=== PATIENT | female | born 1940 | race Caucasian/White ===

== ENCOUNTER → 2016-11-18 | Outpatient (CLI) | payer MEDICARE ==
[~2016-11-18] MED LIST: COUMADIN2.5 MG PO; DIABETA5 M1 PO; GLUCOPHAGE500 MG PO; GLUCOTROL PO; LOSARTAN-HCTZ1 EACH PO; NASONEX17 GM; OXYCODONE15 M1 PO; PROTONIX PO; SERTRALINE HCL100 M1 PO; VITAMIN D-32000 UNI1 PO; XARELTO10 MG PO; ZOCOR20 MG PO; ZYRTEC10 M2 PO
[2016-11-18 14:23] LABS: BUN/CREATININE RATIO 14.54; CALCIUM SERUM 9.3 mg/dL (8.4-10.2); CREATININE SERUM 1.1 mg/dL (0.6-1.4); GLOM FILT RATE Estimated 48.7 mL/min (>60); POTASSIUM 4.4 mmol/L (3.5-5.1)
== END | disposition home or self-care (01) ==
LOC: CAMB 12:00
PROVIDERS: Surgery
DX: Z01.818 Encounter for other preprocedural examination (principal)
CPT/HCPCS: 36415; 80048

== ENCOUNTER 2016-11-25 07:00 | Inpatient (IN) | payer OTHER ==
[~2016-11-25] VITALS: Ht 172.7 cm; Wt 116.0 kg
--- NOTE | ~2016-11-25 | OR ---
Unit #: [id number] #: [id number] Patient: RAMESH BOUDREAUX [id number] [address] [place], [place] [address] [id number] Christ[place] MR#: [id number] NAME: RAMESH BOUDREAUX. ROOM: 468 Date of Procedure: 11/25/2016 Admission Date: 11/25/2016 Surgeon: Anderson Beckham III, M.D. : 1940 Attending Physician: Anderson Beckham III, M.D. Referring Physician: Anderson Beckham III, M.D. Primary Care Physician: Ofelia Blake M.D. OPERATIVE REPORT PREOPERATIVE DIAGNOSIS Lap band intolerance. POSTOPERATIVE DIAGNOSIS Lap band intolerance. PROCEDURE PERFORMED Laparoscopic removal of adjustable gastric band and port. INTEGRATION ENGINEER Dr. Hunter Cornejo. SPECIMENS None. COMPLICATIONS None apparent. INDICATIONS FOR PROCEDURE This is a 76-year-old lady, who had her Lap-Band placed by Dr. Rodgers. She has not followed up since 2009. She is having significant vomiting and is here today to have her lap band removed. DESCRIPTION OF PROCEDURE After consent was obtained, the patient was brought to the operating room and placed in the supine position. General anesthetic was administered. Her abdomen was prepped and draped in standard surgical fashion. I made a 1-inch incision overlying her port. I dissected down and identified the port itself and removed it from the surrounding tissue. Next, I transected the tubing. I passed a 10-mm Visiport at that location and entered the peritoneal cavity without any difficulty. CO2 pneumoperitoneum was then established. Next, a 10-mm port was placed in the left upper quadrant and a 5-mm port was placed in the left lateral subcostal region. She had a lot of inflammation and adhesions in the upper abdomen. I spent approximately 30 minutes taking down these adhesions. Once they were taken down, I was able to clearly identify the anatomy. The tubing was coursing up and I mobilized the tubing away from the underside of the liver until I was able to identify the buckle. I scored overlying the buckle until I had the band fully mobilized. I then divided the band with Endo Rebel and it was removed completely. There was no evidence of any erosion of the gastric band itself. Hemostasis was excellent. All needle, sponge, and instrument counts were correct x2. I Unit #: [id number] #: [id number] Patient: RAMESH BOUDREAUX then removed all the trocars and released the pneumoperitoneum. I injected the port sites with 0.25% plain Marcaine and I reapproximated the skin edges with interrupted 4-0 Vicryl subcuticular suture. Steri-Strips were then applied. The patient tolerated the procedure without any problems and returned to the recovery room in stable condition. Dictated by... Anderson Beckham III, M.D. VCL/duy TD: 11/26/2016 06:39 JOB #: [id number] OPERATIVE REPORT Page 1 of 1 X Anderson Beckham III, MD PROCEDURE OPERATIVE NOTE
== END 2016-11-26 12:36 | disposition home or self-care (01) | DRG 337 ==
LOC: CSUR 07:00 → CPACUOF 09:40 → CSUR 10:18 → C4C 10:18 → CPACUOF 11:10 → C4C 11:10
PROVIDERS: Surgery
PROC: 0DNW4ZZ Release Peritoneum, Percutaneous Endoscopic Approach (ICD-10-PCS; 2016-11-25)
PROC: 0DP64CZ Removal of Extraluminal Device from Stomach, Percutaneous Endoscopic Approach (ICD-10-PCS; principal; 2016-11-25 09:00)
DX: K95.09 Other complications of gastric band procedure (principal); E66.01 Morbid (severe) obesity due to excess calories; R11.2 Nausea with vomiting, unspecified; Z68.39 Body mass index [BMI] 39.0-39.9, adult; R13.10 Dysphagia, unspecified; Z90.710 Acquired absence of both cervix and uterus; Z90.49 Acquired absence of other specified parts of digestive tract; K66.0 Peritoneal adhesions (postprocedural) (postinfection)
CPT/HCPCS: 82947; 94760; J0330; J0690; J1170; J1650; J1815; J2250; J2270; J2405; J2710; J3010; Q9968